=== PATIENT | female | born 1935 | race Caucasian/White ===

== ENCOUNTER → 2016-08-21 | Outpatient (CLI) | payer MEDICARE | LOC: SOLHO 11:35 | PROVIDERS: ATTEND Family Medicine | DX: E78.5 Hyperlipidemia, unspecified (principal); R60.9 Edema, unspecified; I10 Essential (primary) hypertension; E53.8 Deficiency of other specified B group vitamins; R53.83 Other fatigue; R63.0 Anorexia ==

== ENCOUNTER → 2016-08-22 | Outpatient (CLI) | payer MEDICARE | END | disposition home or self-care (01) | LOC: SOLHO 10:02 | PROVIDERS: ATTEND Family Medicine | DX: R53.83 Other fatigue (principal) ==

== ENCOUNTER → 2017-03-20 | Outpatient (CLI) | payer OTHER | END | disposition home or self-care (01) | LOC: SOLHO 11:05 | PROVIDERS: ATTEND Family Medicine | DX: G30.9 Alzheimer's disease, unspecified (principal); R63.0 Anorexia ==

== ENCOUNTER → 2017-05-15 | Outpatient (CLI) | payer OTHER | END | disposition home or self-care (01) | LOC: SOLHO 10:29 | PROVIDERS: ATTEND Family Medicine | DX: N39.0 Urinary tract infection, site not specified (principal) ==

== ENCOUNTER → 2017-05-29 | Outpatient (CLI) | payer MEDICARE, OTHER | END | disposition home or self-care (01) | LOC: SOLHO 13:46 | PROVIDERS: ATTEND Family Medicine | DX: R30.0 Dysuria (principal); G31.1 Senile degeneration of brain, not elsewhere classified ==

== ENCOUNTER 2020-04-18 09:41 | Inpatient (IN) | payer MEDICARE, MEDICAID ==
--- NOTE | 2020-04-18 10:34 | RAD ---
: 1935. Technique: Portable AP semisupine chest x-ray. Comparison: March 26, 2013. Clinical history: fever. Heart size: Heart size looks enlarged in part due to magnification. Lungs: Shallow inspiration. Relative elevated right diaphragm. Some degree of bronchovascular crowding. No acute consolidation. Pleura: No pleural effusion. No pneumothorax. Mediastinum and taz: Unremarkable. Skeletal: Unremarkable. Support tubings: None. Impression: 1. No acute findings in the chest. Electronically signed by: Nick Coronel MD 04/18/2020 10:33 AM CDT
[2020-04-18] MEDS ORDERED: cefTRIAXone SODIUM 1 GM in SODIUM CHL 0.9% 50ML MIN-BAG+ 50 ML IVPB ONE (12:26)
[2020-04-18] MEDS ORDERED: AZITHROMYCIN IV 500 MG in SODIUM CHLORIDE 0.9% 250ML 250 ML IVPB ONE (12:26)
[2020-04-18] MEDS ORDERED: DEXAMETHASONE INJ 10 MG/ML VIAL IV ONE (12:26)
[2020-04-18] MEDS ORDERED: REMDESIVIR 200 MG in SODIUM CHLORIDE 0.9% 250ML 250 ML IVPB ONE (12:27)
--- NOTE | 2020-04-18 12:38 | ED.PDOC ---
History of Present Illness - General Chief Complaint: Fever Stated Complaint: COVID + Time Seen by Provider: 04/18/20 09:49 Source: patient, EMS notes reviewed, longterm records Exam Limitations: clinical condition - History of Present Illness Initial Comments: The patient is an 84-year-old female sent from the longterm secondary to having had a fever this morning and tested positive on their test for coronavirus. The patient does report that she has some shortness of breath. The patient has had some increased agitation over the last 24 hours. She does have some baseline dementia so sometimes it is difficult to tell what is new confusion. The patient does report some mild vague body aches. Patient is highly agitated. She is alert. She is interactive. She denies any sore throat or runny nose however. The patient is a resident of a long-term assisted living center. Timing/Duration: 4-6 hours Severity: moderate Improving Factors: nothing Worsening Factors: nothing Associated Symptoms: cough, loss of appetite, malaise Allergies/Adverse Reactions: Allergies NSAIDs Allergy (Verified 04/18/20 10:17) Home Medications: Ambulatory Orders Aspirin Adult Low Dose 10/10/15 Benazepril HCl 10/10/15 Benzonatate 10/10/15 Donepezil HCl 10/10/15 Memantine 10/10/15 Metoprolol Succinate ER 10/10/15 Potassium 10/10/15 Simvastatin 10/10/15 Sulfamethoxazole-Trimethoprim [Bactrim Ds 800-160 mg] 1 tab PO BID #14 tab 10/10/15 Triamterene/Hydrochloroth 37.5-25 mg 10/10/15 Vitamin B 12 10/10/15 Vitamin D 10/10/15 Review of Systems - Review of Systems Constitutional: States: malaise Respiratory: States: cough, short of breath - Subjective Cardiology: States: no symptoms reported Gastrointestinal/Abdominal: States: no symptoms reported Genitourinary: States: no symptoms reported Musculoskeletal: States: see HPI - Body aches Skin: States: no symptoms reported Neurological: States: other - Increased confusion and agitation compared to baseline Endocrine: States: no symptoms reported All other Systems: No Change from Baseline Past Medical History (General) - Patient Medical History Hx Dementia: Yes Hx Hypertension: Yes Hx Renal Disease: Yes - Vaccination History Hx Influenza Vaccination: No - Social History Hx Tobacco Use: No - Activities of Daily Living Assisted/Assisted Living (if applicable):: [facility] Agency (if applicable):: [facility] - Female History Patient is a Female of Child Bearing Age (10 -59 yrs old): No Family Medical History - Family History Mother Family History: Unknown Living Status: Unknown Physical Exam - Physical Exam General Appearance: Agitated, Alert Eye Exam: bilateral normal Ears, Nose, Throat: hearing grossly normal, normal pharynx Neck: non-tender, supple Respiratory: other - Patient clinically has mild tachypnea. No true respiratory distress but she does report shortness of breath. Mild fine scattered rails. 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 She is uncertain of the hospital and not sure of the date. Skin Exam: normal color Comments: Vital Signs - 8 hr 04/18/20 04/18/20 04/18/20 09:45 09:50 10:45 Temperature 97.6 F 97.9 F Pulse Rate [ 69 69 106 H pulse ox] Respiratory 18 18 22 Rate Blood Pressure 123/79 172/68 [Left Arm] O2 Sat by Pulse 96 96 Oximetry Oxygen saturations dropped down periodically to around 90% on room air while at rest. Progress - Progress Progress: 04/18/20 12:40 The patient is an 84-year-old female presented to emergency room secondary to acute coronavirus infection causing some shortness of breath and confusion in this patient that already has dementia. The patient is at a high risk for deterioration. The patient has had intermittent desaturations down to around 90% on room air without exertion. The patient is being started on Rocephin, azithromycin, remdesivir and dexamethasone. She will need to be monitored closely. If hypoxia gets any worse then additional oxygen will be warranted. There is a high probability of that. Admit for continued care and monitoring. Confusion will likely only worsen with sundowning in the new environment. No focal neurological changes at this time. Admit for continued care. moon De La Garza - Results/Orders Results/Orders: Chest x-ray shows no obvious acute pathology. Respiratory panel is positive for coronavirus. Laboratory Results - last 24 hr 04/18/20 04/18/20 04/18/20 10:15 10:15 10:15 WBC 3.0 L RBC 4.29 Hgb 12.7 Hct 37.8 MCV 88.1 MCH 29.7 MCHC 33.7 RDW 13.4 Plt Count 131 MPV 9.4 Absolute Neuts (auto) 1.50 L Absolute Lymphs (auto) 0.90 L Absolute Monos (auto) 0.40 Absolute Eos (auto) 0.20 Absolute Basos (auto) 0.00 Neutrophils % 50.7 Lymphocytes % 28.8 Monocytes % 13.9 H Eosinophils % 5.6 H Basophils % 1.0 D-Dimer, Quantitative 718.0 H* Sodium 140 Potassium 4.4 Chloride 103 Carbon Dioxide 27 Anion Gap 14.4 BUN 22 H Creatinine 1.08 BUN/Creatinine Ratio 20.4 H Random Glucose 91 Serum Osmolality 282.3 Lactic Acid Calcium 9.0 Magnesium 2.0 Total Bilirubin 0.8 AST 22 ALT 15 Alkaline Phosphatase 61 Creatine Kinase 46 CK-MB (CK-2) 1.7 CK-MB (CK-2) % Not Reportable Troponin I < 0.02 B-Natriuretic Peptide 329.0 H* Serum Total Protein 6.8 Albumin 3.8 Globulin 3.0 Albumin/Globulin Ratio 1.3 Urine Color Urine Appearance Urine pH Ur Specific [place] Urine Protein Urine Glucose (UA) Urine Ketones Urine Blood Urine Nitrite Urine Bilirubin Urine Urobilinogen Ur Leukocyte Esterase Urine RBC Urine WBC Ur Epithelial Cells Urine Bacteria 04/18/20 04/18/20 10:15 11:14 WBC RBC Hgb Hct MCV MCH MCHC RDW Plt Count MPV Absolute Neuts (auto) Absolute Lymphs (auto) Absolute Monos (auto) Absolute Eos (auto) Absolute Basos (auto) Neutrophils % Lymphocytes % Monocytes % Eosinophils % Basophils % D-Dimer, Quantitative Sodium Potassium Chloride Carbon Dioxide Anion Gap BUN Creatinine BUN/Creatinine Ratio Random Glucose Serum Osmolality Lactic Acid 1.5 Calcium Magnesium Total Bilirubin AST ALT Alkaline Phosphatase Creatine Kinase CK-MB (CK-2) CK-MB (CK-2) % Troponin I B-Natriuretic Peptide Serum Total Protein Albumin Globulin Albumin/Globulin Ratio Urine Color Yellow Urine Appearance Sl cloudy Urine pH 6.0 Ur Specific [place] 1.025 Urine Protein Negative Urine Glucose (UA) Negative Urine Ketones Negative Urine Blood Trace-lysed H Urine Nitrite Positive H Urine Bilirubin Negative Urine Urobilinogen 0.2 Ur Leukocyte Esterase Negative Urine RBC 1-3 Urine WBC 0 Ur Epithelial Cells 0 Urine Bacteria 2+ H Departure - Departure Clinical Impression: Delirium, COVID-19 Dyspnea Qualifiers: Dyspnea type: shortness of breath Qualified Code(s): R06.02 - Shortness of breath; R06.00 - Dyspnea, unspecified; R06.01 - Orthopnea Disposition: Discharge to Home or Self Care Condition: Poor Departure Forms: ED Discharge - Pt. Copy, Patient Portal Self Enrollment Referrals: Baudilio Patel III, MD [Primary Care Provider] - 1-2 Weeks Home Medications: Ambulatory Orders Aspirin Adult Low Dose 10/10/15 Benazepril HCl 10/10/15 Benzonatate 10/10/15 Donepezil HCl 10/10/15 Memantine 10/10/15 Metoprolol Succinate ER 10/10/15 Potassium 10/10/15 Simvastatin 10/10/15 Sulfamethoxazole-Trimethoprim [Bactrim Ds 800-160 mg] 1 tab PO BID #14 tab 10/10/15 Triamterene/Hydrochloroth 37.5-25 mg 10/10/15 Vitamin B 12 10/10/15 Vitamin D 10/10/15 Decision To Admit - Decistion To Admit Decision to Admit Reason: Medical Nature Decision to Admit Date: 04/18/20 Decision to Admit Time: 12:45
--- NOTE | 2020-04-18 13:36 | HP ---
SUPERVISING PHYSICIAN: Jorge Maddox MD CHIEF COMPLAINT: Positive COVID test with fever at [facility]. HISTORY OF PRESENT ILLNESS: Ms. Rodriguez is an 84-year-old female patient who is actually on hospice with [facility] for dementia. She was sent to the Emergency Room from [facility] secondary to having a fever on morning rounds and then was tested for coronavirus and found to be positive. The patient has severe dementia and was reported by the skilled nursing to become more agitated over the last 24 hours. In the Emergency Room, the patient was highly agitated. She is a very poor historian. Therefore, records were obtained from Dr. Patel' office for history and physical and further medical history. Laboratory studies showed white count 3,000 with hemoglobin 12.6, hematocrit 37.8. D-dimer was elevated at 718. Chemistries showed BUN 22, otherwise within normal limits with creatinine, electrolytes and liver functions. BNP was elevated at 329. Troponin was negative at 0.02. Lactic acid was normal. Urinalysis was positive for nitrites. Microscopic revealed 2+ bacteria. Blood cultures were completed as well as urine culture. Respiratory panel detected coronavirus, but negative for all other viral and bacterial targets. She was started on treatment for coronavirus pneumonitis with Remdesivir, Decadron, Rocephin and azithromycin. Her vital signs in the Emergency Room did show saturation in the low 90s and improved with treatment up to 94% on room air. Chest x-ray showed no acute findings within the chest. Given that she is positive for COVID and showing some saturations on room air of less than 92% with mild hypoxia and worsening confusion, the patient is going to be admitted for initiation of treatment for COVID pneumonitis. PAST MEDICAL HISTORY: 1. Hypertension. 2. Gastroesophageal reflux disease. 3. Osteoarthritis. 4. 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 PAST SURGICAL HISTORY: 1. Tonsillectomy. 2. Cholecystectomy. 3. History with bilateral salpingo-oophorectomy and bladder suspension. 4. Hemorrhoidectomy. 5. Left knee arthroscopy. 6. Left total knee replacement HOME MEDICATIONS: Awaiting updated list from the skilled nursing for verification. ALLERGIES: NSAIDs. FAMILY HISTORY: Father at 81 due to problems after cholecystectomy. Mother at age 86 due to complications from insulin dependent diabetes mellitus and congestive heart failure. One brother as a child from a paralytic disorder. She has one brother with a history of prostate cancer and a sister that at 69 secondary to metastatic breast cancer. SOCIAL HISTORY: The patient is a resident of [facility]. She is . She has never smoked and does not drink alcohol. REVIEW OF SYSTEMS: CONSTITUTIONAL: Reported from the skilled nursing some general malaise and fever. RESPIRATORY: Reported having cough and subjective shortness of breath. CARDIOVASCULAR: No reported chest pain, palpitations. GASTROINTESTINAL: No reported nausea, vomiting, diarrhea, constipation or abdominal pain. GENITOURINARY: No reported dysuria, hematuria, polyuria. MUSCULOSKELETAL: As noted in history of present illness, some body aches. SKIN: No reported lesions, rashes, breakdown or unexplained changes. NEUROLOGIC: Increasing confusion and agitation compared to baseline. HEMATOLOGIC: No reported easy bruising, unexplained bleeding or transfusion reactions. PHYSICAL EXAMINATION: VITAL SIGNS: Initially in the Emergency Room, temperature 97.6, pulse 69, blood pressure 123/79, respirations 18, saturation as low as 90% on room air. With treatment and positioning, up to 97%. GENERAL: The patient appears to be a little agitated, but does not look to be in any distress. She is alert. HEENT: Tympanic membranes clear bilaterally. Oropharynx is pink, moist without any lesions. NECK: Supple, nontender with full range of motion. No jugular venous distention noted. RESPIRATORY: She is mildly tachypneic with no true actual distress. No respiratory distress. There are some fine rales noted throughout. No obvious wheezing. CARDIOVASCULAR: Regular rate and rhythm. She has 1+ edema to the bilateral lower extremities, which I believe is chronic. ABDOMEN: Nontender. Positive bowel sounds. NEUROLOGIC: Cranial nerves II-XII are grossly intact as tested. She does answer some basic questions. She tells me her name and that she feels like she is in the hospital, but she is not sure where. She is a little agitated, but is easily consoled. No obvious motor neuro deficits. SKIN: Warm, pink and dry. LABORATORY: White count 3,000, hemoglobin 12.7, hematocrit 37.8, platelet count 131,000. Differential is without a left shift. Coagulation studies showed elevated D-dimer at 718. Chemistry shows normal electrolytes with BUN 22, creatinine 1.08. Magnesium normal. Calcium normal. Lactic acid 1.5. Liver functions all within normal limits. C-reactive protein pending. Troponin less than 0.02. BNP elevated at 329. Urinalysis showed trace blood, positive nitrites with 2+ bacteria. No epithelials, no white cells, but 1 to 3 RBCs on microscopic. MICROBIOLOGY: Blood cultures are pending. Urine culture pending. Respiratory panel positive for COVID, negative for all other bacterial and viral targets including influenza. RADIOLOGY: EKG showed paced rhythm. Chest x-ray per radiologic interpretation showed no acute findings within the chest. ASSESSMENT: 1. COVID pneumonitis with mild hypoxia on room air. 2. End-stage dementia on hospice care with [facility]. 3. Urinary tract infection with cultures pending. 4. Hypertension. 5. Gastroesophageal reflux disease. PLAN: Ms. Rodriguez is going to be admitted for treatment of COVID pneumonitis. Labs will be followed. She will be Remdesivir, Decadron, Rocephin and azithromycin. She is also on Lovenox given that she has an elevated D-dimer. With no major clinical history, I will start her on 40 mg q. daily. We will resume her home medications once they have been updated and verified. She will be on albuterol breathing treatments as needed, inhaler. I am not sure how well she will be able to follow that given her dementia, so we may have to switch her to nebulizer. We will follow her las as appropriate COVID. [facility] has been notified of her admission and will continue all of her medications in regard to admission agitation. Urine culture is pending. We will await culture results to target antibiotic therapy. I would anticipate her length of stay to be lengthy due to the fact that she is from a skilled nursing and I believe [facility] at this point does not have any COVID protocols in place. Therefore, we will have to figure out placement for her once she is stable unless [facility] can implement a COVID protocol. Until then, we will continue to monitor and treat as needed. [facility][id number]
[2020-04-18] MEDS ORDERED: ALBUTEROL INHALER 64 PUFF/8GM INH ONE (13:45)
[2020-04-18] MEDS ORDERED: SODIUM CHLORIDE 0.9% 250ML 250 ML ONE (15:43)
[2020-04-18] MEDS ORDERED: REMDESIVIR 200 MG IVPB ONE (15:44)
[2020-04-18] MEDS ORDERED: ONDANSETRON INJ 4 MG/2 ML VIAL IV PRN (16:22)
[2020-04-18] MEDS ORDERED: ALBUTEROL INHALER 64 PUFF/8GM INH PRN (16:28)
[2020-04-18] MEDS ORDERED: IV SET AND CAP CHANGE INJ INJ SCH (16:30)
[2020-04-18] MEDS ORDERED: traMADol HCL 50 MG TAB PO PRN (19:48)
[2020-04-18] MEDS ORDERED: ACETAMINOPHEN 500 MG TAB PO PRN (19:48)
[2020-04-18] MEDS ORDERED: POLYETHYLENE GLYCOL 3350 17 GM PCKT PO PRN (19:48)
[2020-04-18] MEDS: SODIUM CHLORIDE 0.9% (FLUSH) 10 ML SYG IV PRN (21:28)
[2020-04-18] MEDS: LORazepam 0.5 MG TAB PO SCH (21:28)
[2020-04-18] MEDS: ENOXAPARIN SODIUM 40 MG/0.4 ML SYG SUBCU SCH (21:28)
[2020-04-18] MEDS: busPIRone HCL 5 MG TAB PO SCH (21:28)
[2020-04-19] MEDS ORDERED: PANTOPRAZOLE SODIUM IV 40 MG VIAL IV SCH (06:30)
[2020-04-19] MEDS ORDERED: LORATADINE 10 MG TAB PO ONE (08:44)
[2020-04-19] MEDS ORDERED: FUROSEMIDE 40 MG TAB ONE (08:45)
[2020-04-19] MEDS ORDERED: cefTRIAXone SODIUM 1 GM in SODIUM CHL 0.9% 50ML MIN-BAG+ 50 ML IVPB SCH (09:00)
[2020-04-19] MEDS: REMDESIVIR 100 MG in SODIUM CHLORIDE 0.9% 250ML 250 ML IVPB SCH (09:19)
[2020-04-19] MEDS: POTASSIUM CHLORIDE ELIXIR 20 MEQ/15 ML UD PO SCH (09:19)
[2020-04-19] MEDS: SODIUM CHLORIDE 0.9% (FLUSH) 10 ML SYG IV PRN (09:19)
[2020-04-19] MEDS: MELOXICAM 7.5 MG TAB PO SCH (09:20)
[2020-04-19] MEDS: LORATADINE 10 MG TAB PO SCH (09:20)
[2020-04-19] MEDS: ENOXAPARIN SODIUM 40 MG/0.4 ML SYG SUBCU SCH (09:20)
[2020-04-19] MEDS: DEXAMETHASONE INJ 10 MG/ML VIAL IV SCH (09:20)
[2020-04-19] MEDS: ASPIRIN (ENTERIC COATED) 81 MG TAB PO SCH (09:20)
[2020-04-19] MEDS: busPIRone HCL 5 MG TAB PO SCH ×2 (09:20→20:52)
[2020-04-19] MEDS: BIFIDOBACTERIUM INFANTIS 4 MG CAP PO SCH (09:20)
[2020-04-19] MEDS: FUROSEMIDE 40 MG TAB PO SCH (09:21)
[2020-04-19] MEDS: ESCITALOPRAM 10 MG TAB PO SCH (09:21)
[2020-04-19] MEDS: LORazepam 0.5 MG TAB PO PRN ×2 (09:21→17:07)
[2020-04-19] MEDS: BENAZEPRIL HCL 10 MG PO SCH (10:56)
[2020-04-19] MEDS: cefTRIAXone SODIUM 1 GM in SODIUM CHL 0.9% 50ML MIN-BAG+ 50 ML IVPB SCH (11:56)
[2020-04-19] MEDS ORDERED: AZITHROMYCIN IV 500 MG VIAL IVPB ONE (14:26)
[2020-04-19] MEDS ORDERED: SODIUM CHLORIDE 0.9% 250ML 250 ML ONE (14:27)
--- NOTE | 2020-04-19 16:17 | PN ---
SUPERVISING PHYSICIAN: Bhaskar Wyatt MD DATE: 04/18/20 SUBJECTIVE: The patient is sitting in bed, she is very confused. She does answer when questioned but her speech is gibberish. The patient's nurse reports no problems today. OBJECTIVE: VITAL SIGNS: Temperature 98.3, heart rate 87, blood pressure 139/78, respiratory rate 17, oxygen saturation 97% on room air. RESPIRATORY: Diminished at the bases with a few scattered rhonchi. CARDIAC: Regular rate and rhythm. NEUROLOGIC: She is awake and alert but very confused. LABORATORY: WBC 2,700 with hemoglobin 12.4, hematocrit 36.2. PTT is 29.8 with fibrinogen of 349, D-dimer is 650. Electrolytes are basically within normal limits. Liver function tests are within normal limits. Preliminary urine culture shows gram negative rods. Preliminary blood cultures show no growth after 24 hours. All other labs and films have been reviewed via the EMR. ASSESSMENT: 1. COVID pneumonitis with mild hypoxia on room air. 2. End-stage dementia on hospice care with [facility]. 3. Urinary tract infection with cultures pending. 4. Hypertension. 5. Gastroesophageal reflux disease. PLAN: We will continue present supportive care. Will repeat her labs including her Covid lab in the morning. She will also need her Romeo catheter discontinued, at discharge we will need to do Romeo training. She is a resident of [facility] and she made to go to their sister facility in [place], [place] for discharge due to her Covid status. Caity Elias, ALEM, has contacted the facility as well as her family and they are in agreement. Hopefully she can be discharged in the next 1 to 2 days to that facility and they have made arrangements for her transfer. #[id number] [facility]
[2020-04-19] MEDS ORDERED: AZITHROMYCIN IV 500 MG in SODIUM CHLORIDE 0.9% 250ML 250 ML IVPB SCH (16:30)
[2020-04-19] MEDS ORDERED: HALOPERIDOL LACTATE INJ 5 MG/ML VIAL ONE (18:07)
[2020-04-19] MEDS: HALOPERIDOL LACTATE INJ 5 MG/ML VIAL IM PRN (18:21)
[2020-04-19] MEDS ORDERED: guaiFENesin ER TAB 600 MG TAB ONE (19:32)
[2020-04-19] MEDS: LORazepam 0.5 MG TAB PO SCH (20:52)
[2020-04-19] MEDS: guaiFENesin ER TAB 600 MG TAB PO SCH (20:52)
[2020-04-20] MEDS: HALOPERIDOL LACTATE INJ 5 MG/ML VIAL IM PRN (01:40)
[2020-04-20] MEDS: LORazepam 0.5 MG TAB PO PRN ×2 (03:09→09:13)
[2020-04-20] MEDS ORDERED: PANTOPRAZOLE SODIUM TAB 40 MG PO ONE (04:39)
[2020-04-20] MEDS ORDERED: PANTOPRAZOLE SODIUM TAB 40 MG PO SCH (06:30)
[2020-04-20 06:36] VITALS: BP 127/68; TEMP 98.3
--- NOTE | 2020-04-20 07:19 | RAD ---
EXAM: XR Chest, 1 View CLINICAL HISTORY: COVID pneumonitis TECHNIQUE: Frontal view of the chest. COMPARISON: 04/18/2020 FINDINGS: Lungs: Shallow inspiration with minimal atelectasis or scarring present in the left lung base. Pleural space: No pneumothorax or pleural effusion. Heart: Normal cardiac size and configuration. Mediastinum: No abnormality noted. Bones/joints: No osseous destruction or sclerosis noted. IMPRESSION: Shallow inspiration with minimal atelectasis or scarring present in the left lung base. Electronically signed by: Eulalia Burroughs MD 04/20/2020 7:17 AM CDT
[2020-04-20] MEDS: DEXAMETHASONE INJ 10 MG/ML VIAL IV SCH (09:11)
[2020-04-20] MEDS: REMDESIVIR 100 MG in SODIUM CHLORIDE 0.9% 250ML 250 ML IVPB SCH (09:11)
[2020-04-20] MEDS: ENOXAPARIN SODIUM 40 MG/0.4 ML SYG SUBCU SCH (09:11)
[2020-04-20] MEDS: busPIRone HCL 5 MG TAB PO SCH (09:12)
[2020-04-20] MEDS: MELOXICAM 7.5 MG TAB PO SCH (09:12)
[2020-04-20] MEDS: guaiFENesin ER TAB 600 MG TAB PO SCH (09:12)
[2020-04-20] MEDS: ESCITALOPRAM 10 MG TAB PO SCH (09:12)
[2020-04-20] MEDS: POTASSIUM CHLORIDE ELIXIR 20 MEQ/15 ML UD PO SCH (09:12)
[2020-04-20] MEDS: LORATADINE 10 MG TAB PO SCH (09:13)
[2020-04-20] MEDS: BIFIDOBACTERIUM INFANTIS 4 MG CAP PO SCH (09:13)
[2020-04-20] MEDS: BENAZEPRIL HCL 10 MG PO SCH (09:14)
[2020-04-20] MEDS: FUROSEMIDE 40 MG TAB PO SCH (09:14)
[2020-04-20] MEDS: ASPIRIN (ENTERIC COATED) 81 MG TAB PO SCH (09:14)
[2020-04-20] MEDS: cefTRIAXone SODIUM 1 GM in SODIUM CHL 0.9% 50ML MIN-BAG+ 50 ML IVPB SCH (11:47)
[2020-04-20] MEDS ORDERED: AZITHROMYCIN 250 MG TAB PO ONE ×2 (13:05→13:15)
[2020-04-20 13:35] VITALS: O2SAT 98
--- NOTE | 2020-04-25 14:03 | DS ---
SUPERVISING PHYSICIAN: Bhaskar Wyatt MD DISCHARGE DIAGNOSES: 1. COVID pneumonitis with mild hypoxia on room air. 2. End-stage dementia on hospice care with [facility]. 3. Urinary tract infection with cultures pending. 4. Hypertension. 5. Gastroesophageal reflux disease. HISTORY OF PRESENT ILLNESS: This is an 84-year-old female patient who was on hospice care with [facility] for dementia. She was sent to the Emergency Room from [facility] secondary to having a fever on the morning rounds and was tested for coronavirus and found to be positive. She has severe dementia and it was reported by the assisted that she became more agitated over the last 24 hours. She actually was very agitated In the Emergency Room. She is a very poor historian and records were obtained from Dr. Patel' office as well as the EMR. Her initial laboratory studies showed white count 3,000 with hemoglobin 12.6, hematocrit 37.8. D-dimer was elevated at 718. Chemistries showed BUN 22, otherwise they were within normal limits. BNP was slightly elevated at 329. Troponin was negative at 0.02. Lactic acid was normal. Urinalysis was positive for nitrites. Microscopic revealed 2+ bacteria. Blood cultures were completed as well as urine culture. Respiratory panel detected coronavirus, but negative for all other viral and bacterial targets. She was started on treatment for coronavirus pneumonitis with Remdesivir, Decadron, Rocephin and azithromycin. Her vital signs in the Emergency Room did show saturations in the low 90s and improved with treatment up to 94% on room air. Chest x-ray showed no acute findings within the chest. Given that she was positive for COVID and showing some desaturations on room air of less than 92% with mild hypoxia and worsening confusion, the patient was admitted for initiation of treatment for COVID pneumonitis. She was placed in observation in the hospital. HOSPITAL COURSE: Covid-19 guidelines were followed. In addition to her Remdesivir, Decadron, Rocephin and azithromycin, she was also given Lovenox. Her home medications were restarted as they were verified. She was on breathing treatment as needed as well as scheduled. [facility] was notified of her admission and initially hospice rescinded for treatment of the coronavirus. Initially, [facility] had no place to place Covid patients and as long as the patient was showing positive and until they a plan in place, they were unable to take patient. The patient progressively improved and Kym Hansen arranged with their sister facility in [place] and they would take the patient in transfer from the hospital. She will be discharged in stable condition to [facility] in [place], [place]. LABORATORY: Initial WBCs 3,000, today are 5,300. Hemoglobin and hematocrit stable at 12.1 and 34.7. D-dimer was 718 on admission and is now 407. Electrolytes are basically within normal limits. Creatinine kinase was slightly elevated at 169. Urine culture was pending and her preliminary blood cultures showed no growth. Final chest x-ray showed shallow inspiration with minimal atelectasis. There is scarring present in the left lung base. DISCHARGE PLAN: The patient will be discharged [facility] in [place], [place]. She will continue with her previous home medications and she will be resumed on hospice care. In addition to her home medications, she will have Align, 7 days of Cefdinir, 7 days of Decadron, 30 days of Eliquis, Guaifenesin, albuterol breathing treatments and 4 days of azithromycin. She is to return to the hospital or followup with Dr. Patel for any problems or complications. DISCHARGE MEDICATIONS: 1. Tylenol. 2. Robitussin. 3. Potassium chloride. 4. Miralax. 5. Meloxicam. 7. Lorazepam. 8. Loratadine. 9. Ketoprofen. 9. Furosemide. 10. Lexapro. 11. Buspirone. 12. Benazepril. 13. Aspirin. 15. Align. 16. Cefdinir. 17. Decadron. 18. Eliquis. 19. Guaifenesin tabs, 29. Albuterol. 30. Azithromycin. [facility][id number]
== END 2020-04-20 14:30 | DRG 177 ==
LOC: ER 09:41 → MS 13:34 → OBSVTOIN 13:34
PROVIDERS: ADMIT Nurse Practitioner Family; ATTEND Nurse Practitioner Acute Care
PROC: XW033E5 Introduction of Remdesivir Anti-infective into Peripheral Vein, Percutaneous Approach, New Technology Group 5 (ICD-10-PCS; principal; 2020-04-18)
DX: U07.1 COVID-19 (principal); J12.89 Other viral pneumonia; N39.0 Urinary tract infection, site not specified; R09.02 Hypoxemia; F03.90 Unspecified dementia, unspecified severity, without behavioral disturbance, psychotic disturbance, mood disturbance, and anxiety; I10 Essential (primary) hypertension; K21.9 Gastro-esophageal reflux disease without esophagitis; M19.90 Unspecified osteoarthritis, unspecified site; Z66 Do not resuscitate; Z96.652 Presence of left artificial knee joint; Z88.6 Allergy status to analgesic agent; Z79.82 Long term (current) use of aspirin; Z79.899 Other long term (current) drug therapy